=== PATIENT | female | born 1990 | race Hispanic/Latino ===

== ENCOUNTER 2016-06-10 14:08 | Inpatient (IN) | payer OTHER ==
[~2016-06-10] VITALS: Ht 149.9 cm; Wt 90.0 kg
[2016-06-10] VITALS (16 sets, daily range): BP systolic 109–130; BP diastolic 65–86
[2016-06-10 15:33] LABS: MEAN CORPUSCULAR HEMOGLOBIN 27.7 pg (27.0-33.0); MEAN CORPUSCULAR HGB CONC 34.1 g/dl (32.0-36.5); MEAN CORPUSCULAR VOLUME 81.1 fl (80.0-96.0); RED CELL DISTRIBUTION WIDTH 14.3 % (11.5-14.5); WHITE BLOOD COUNT 8.5 K/mm3 (4.0-10.0)
[2016-06-10] MEDS ORDERED: OXYTOCIN DRIP 30 UNITS in APPROPRIATE DILUENT 1 EA IV SCH (15:45)
[2016-06-10] MEDS ORDERED: LR 1,000 ML IV SCH (15:45)
[2016-06-10 15:50] LABS: ANION GAP 13 MEQ/L (8-16); BLOOD UREA NITROGEN 6 MG/DL (7-18); CALCIUM LEVEL 8.1 MG/DL (8.5-10.1); CARBON DIOXIDE LEVEL 22 MEQ/L (21-32); CHLORIDE LEVEL 105 MEQ/L (98-107); CREATININE FOR GFR 0.52 MG/DL (0.55-1.02); GLOMERULAR FILTRATION RATE > 60.0 (>60); GLUCOSE, FASTING 80 MG/DL (70-105); POTASSIUM SERUM 3.9 MEQ/L (3.5-5.1); SODIUM LEVEL 140 MEQ/L (136-145)
[2016-06-10 17:42] LABS: MEAN CORPUSCULAR HEMOGLOBIN 27.3 pg (27.0-33.0); MEAN CORPUSCULAR HGB CONC 33.5 g/dl (32.0-36.5); MEAN CORPUSCULAR VOLUME 81.6 fl (80.0-96.0); RED CELL DISTRIBUTION WIDTH 14.3 % (11.5-14.5); WHITE BLOOD COUNT 8.8 K/mm3 (4.0-10.0)
[2016-06-10 17:43] LABS: PLTBLUE- EDTA FREE MACHINE 57 K/mm3 (172-450)
[2016-06-10 17:59] LABS: PLTBLUE- EDTA FREE CALC 63 K/mm3 (172-450)
[2016-06-11] VITALS (8 sets, daily range): BP systolic 120–145; BP diastolic 73–91
[2016-06-11 02:04] LABS: CORD GAS ABE A -7.9; CORD GAS ABE V -2.2; CORD GAS HCO3 V 22.1 MEQ/L; CORD GAS O2 SAT A 52.3 %; CORD GAS O2 SAT V 72.6 %; CORD GAS PCO2 A 34.2 mmHg; CORD GAS PCO2 V 37.1 mmHg; CORD GAS PH A 7.315 UNITS; CORD GAS PH V 7.393 UNITS; CORD GAS PO2 A 22.5 mmHg; CORD GAS PO2 V 29.7 mmHg; CORD GAS SBC A 17.1 MEQ/L; CORD GAS SBC V 21.9 MEQ/L; CORD GAS TCO2 A 18.1 MEQ/L; CORD GAS TCO2 V 23.2 MEQ/L
[2016-06-11] MEDS ORDERED: OXYTOCIN DRIP 30 UNITS in APPROPRIATE DILUENT 1 EA IV SCH (03:44)
[2016-06-11] MEDS ORDERED: RHOGAM 300 MCG (1500 IU) INJ (J2790) IM SCH (03:45)
[2016-06-11] MEDS ORDERED: DIBUCAINE 1% OINTMENT 30GM TOP PRN (03:45)
[2016-06-11] MEDS ORDERED: METHYLERGONOVINE MALEATE 0.2 MG/ML VIAL (J2210) IM PRN (03:45)
[2016-06-11] MEDS ORDERED: PROMETHAZINE 25 MG TAB PO PRN (03:45)
[2016-06-11] MEDS ORDERED: IBUPROFEN 800 MG TAB PO PRN (03:45)
[2016-06-11] MEDS ORDERED: ACETAMINOPHEN 500 MG TAB PO PRN (03:45)
[2016-06-11] MEDS ORDERED: MEASLES,MUMPS,RUBELLA VACCINE INJ (MMR-II) (90707) SC SCH (03:45)
[2016-06-11] MEDS ORDERED: ONDANSETRON 4MG/2ML VIAL (J2405) IV PRN (03:45)
[2016-06-11 06:58] LABS: MEAN CORPUSCULAR HEMOGLOBIN 27.6 pg (27.0-33.0); MEAN CORPUSCULAR HGB CONC 33.3 g/dl (32.0-36.5); MEAN CORPUSCULAR VOLUME 83.1 fl (80.0-96.0); WHITE BLOOD COUNT 11.7 K/mm3 (4.0-10.0)
--- NOTE | 2016-06-11 07:06 | DN ---
DATE OF DELIVERY: 06/11/2016 TIME OF : 0127. GENDER: Female. : 7 and 9. WEIGHT: 3490 grams, 7 pounds, 11 ounces. LACERATIONS: First degree midline laceration. ESTIMATED BLOOD LOSS: 300 mL. ANESTHESIA: None. Cord gases: 7.31, 7.39 with base excess -7.9 and -2.2. COUNTS: Five laparotomy sponges, count of four prior to and after delivery. Four sharps removed from the delivery field. COMPLICATIONS: There was an approximately less than 30 second shoulder dystocia which was alleviated with Kin maneuver and suprapubic pressure. DELIVERY NOTE: On June 11, 2016, Mrs. Munoz, a 25-year-old 2, now para 2, had a spontaneous vaginal deliver of a live born female , 7 and 9, weight 3490 grams or 7 pounds 11 ounces. Head was delivered ADAM with gentle downward traction. I was unable to deliver the right anterior shoulder, at which time, the patient was repositioned to the Kin maneuver and suprapubic pressure was applied with alleviation of the right anterior shoulder followed by left posterior shoulder and corpus. was handed to mother with a good cry. Cord was clamped times two, it was cut by the father of the baby under my direction. Cord blood and cord gases were then obtained. Placenta was then drained and delivered grossly intact. A premixed bag of 500 mL of normal saline with 30 units of Pitocin was then bolused along with uterine massage. The uterus was firm. On inspection, there was a first degree midline laceration. The area was infused with 1% lidocaine and then wound was repaired with #3-0 Vicryl Rapide. On reinspection, the cervix, vagina, perineum was grossly intact, hemostatic. Mother and baby recovering in stable condition. The couple decided to name their daughter Keegan.
[2016-06-11] MEDS ORDERED: ACET50TA PO (08:25)
[2016-06-11] MEDS ORDERED: IBUP-1114 PO (08:26)
[2016-06-11] MEDS ORDERED: PRENTAB9 PO (08:26)
[2016-06-11] MEDS: PRENATAL VITAMIN TAB PO SCH (08:44)
[2016-06-11] MEDS: DOCUSATE SODIUM 100 MG CAP PO SCH ×2 (08:45→20:47)
[2016-06-12 05:30] VITALS: BP 131/79
[2016-06-12] MEDS: DOCUSATE SODIUM 100 MG CAP PO SCH (09:10)
[2016-06-12] MEDS: PRENATAL VITAMIN TAB PO SCH (09:10)
--- NOTE | 2016-06-12 10:01 | DSES ---
DATE OF ADMISSION: 06/10/2016 DATE OF DISCHARGE: 06/12/2016 This lady is a 25-year-old 2, para 1 admitted for induction of labor because of a category two strip and gestational diabetes mellitus 1 (GDMA1). She had induction of labor, delivered a live female infant weighing 7 pounds 11 ounces, 3490 grams, of 7 and 9 in one and five minutes respectively. Arterial pH was 7.31, base excess minus 7.9, venous pH 7.39, base excess -2.2. On discharge we discussed phlebitis, cystitis, mastitis, endometritis and cellulitis, exercise, pain management, perineal, breast and wound care. The patient is uncertain as a method of control at the present time will discuss this with the provider at the 6-week checkup. VITAL SIGNS: On discharge her blood pressure is 131/79, respirations 18, pulse 77, temperature 96.7. Her hemoglobin today, so 10.9, hematocrit 32.7, platelets are low at 64. Etiology about the low platelets are uncertain, on admission her platelets were 69. There is no evidence in history to suggest that she had idiopathic thrombocytopenia (ITP) or any other platelet dysfunction. HEENT/NECK: On the rest of the examination she is normocephalic, atraumatic. Neck: Full range of motion. Pupils equal and reactive to light. EXTREMITIES: Distal pulses symmetric. No evidence of deep venous thrombosis (DVT), pulmonary embolus (PE), superficial phlebitis. CHEST: Chest is clear bilaterally bases. No wheezes or rhonchi. ABDOMEN: No CVA tenderness. Breast-feeding is going well. Uterus is two below. Lochia is moderate. Perineum is intact. No rashes or lesions or pruritus. No arthralgia, myalgia. No complaints of cough, wheezes, shortness of breath or dyspnea on exertion. No chest pain. No bruising. No bleeding. NEUROLOGY EXAM: Neuro complete. No incontinence, urgency or frequency. No nausea, vomiting, diarrhea or constipation. No diabetic issues. No REPRODUCTIVE ENDOCRINOLOGIST issues. PAST MEDICAL HISTORY: No past significant medical history. SOCIAL HISTORY: She does not smoke or drink, does not abuse drugs. No domestic violence. SUMMARY: In summary have a term gestation delivered after induction of labor a live female for discharge today. Followup in the office in six weeks' time, possibly redoing her platelet count at that time to evaluate if further investigation is necessary.
[2016-06-12] MEDS ORDERED: NUPE1OIN2 TOP (11:15)
== END 2016-06-12 12:40 | disposition home or self-care (01) | DRG 775 ==
LOC: M LDI 14:08 → M OBS 06-11 03:55
PROVIDERS: ADMIT Obstetrics & Gynecology; ATTEND Obstetrics & Gynecology
PROC: 3E030VJ Introduction of Other Hormone into Peripheral Vein, Open Approach (ICD-10-PCS; 2016-06-10)
PROC: 10E0XZZ Delivery of Products of Conception, External Approach (ICD-10-PCS; principal; 2016-06-11)
PROC: 0HQ9XZZ Repair Perineum Skin, External Approach (ICD-10-PCS; 2016-06-11)
DX: O24.420 Gestational diabetes mellitus in childbirth, diet controlled (principal); O99.13 Other diseases of the blood and blood-forming organs and certain disorders involving the immune mechanism complicating the puerperium; O48.0 Post-term pregnancy; Z37.0 Single live birth; Z3A.40 40 weeks gestation of pregnancy; E66.9 Obesity, unspecified; Z88.5 Allergy status to narcotic agent; O70.0 First degree perineal laceration during delivery; O66.0 Obstructed labor due to shoulder dystocia; O99.214 Obesity complicating childbirth; D69.6 Thrombocytopenia, unspecified

== ENCOUNTER 2017-03-15 02:26 | Emergency (ER) | payer OTHER ==
[~2017-03-15] VITALS: Ht 149.9 cm; Wt 66.8 kg
[~2017-03-15 02:26] MED LIST: ACET50TA PO; IBUP-1114 PO; NUPE1OIN2 TOP; PRENTAB9 PO
[2017-03-15] MEDS ORDERED: FERR1TAB8 PO (02:41)
[2017-03-15] MEDS ORDERED: ZYRT10CA PO (02:41)
[2017-03-15] MEDS ORDERED: VITA500C24 PO (02:41)
[2017-03-15] MEDS ORDERED: COLA100C5 PO (02:41)
[2017-03-15] MEDS ORDERED: RANI150C PO (02:41)
[2017-03-15 02:56] LABS: BASO % 0.2 % (0.0-1.0); EOS # 0.1 10^3/uL (0.0-0.50); EOS % 1.7 % (0.0-3.0); IMMATURE GRANULOCYTE % 0.2 % (0-0); LYMPH # 2.4 10^3/uL (1.5-6.5); MEAN CORPUSCULAR HEMOGLOBIN 29.3 pg (27.0-33.0); MEAN CORPUSCULAR HGB CONC 33.3 g/dl (32.0-36.5); MONO # 0.3 10^3/uL (0.0-0.8); MONO % 4.1 % (0.0-5.0); NEUTROPHILS # 3.7 10^3/uL (1.8-7.7); NEUTROPHILS % 56.8 % (36.0-66.0); PLATELET COUNT, AUTOMATED 108 10^3/uL (150-450); RED CELL DISTRIBUTION WIDTH 12.8 % (11.5-14.5); WHITE BLOOD COUNT 6.6 10^3/uL (4.0-10.0)
[2017-03-15 03:27] LABS: ALBUMIN 3.2 GM/DL (3.2-5.2); ALBUMIN/GLOBULIN RATIO 0.91 (1.00-1.93); ALKALINE PHOSPHATASE 103 U/L (45-117); ALT/SGPT 26 U/L (12-78); ANION GAP 7 MEQ/L (8-16); AST/SGOT 33 U/L (15-37); BILIRUBIN,DIRECT < 0.1 MG/DL (0.0-0.2); BILIRUBIN,TOTAL 0.2 MG/DL (0.2-1.0); BLOOD UREA NITROGEN 13 MG/DL (7-18); CALCIUM LEVEL 8.2 MG/DL (8.5-10.1); CARBON DIOXIDE LEVEL 30 MEQ/L (21-32); CHLORIDE LEVEL 103 MEQ/L (98-107); GLOMERULAR FILTRATION RATE > 60.0 (>60); GLUCOSE, FASTING 133 MG/DL (70-105); POTASSIUM SERUM 3.3 MEQ/L (3.5-5.1); SODIUM LEVEL 140 MEQ/L (136-145); TOTAL PROTEIN 6.7 GM/DL (6.4-8.2)
[2017-03-15 04:47] LABS: CONTROL LINE HCG INT CTR LINE PRESENT
[2017-03-15] MEDS ORDERED: ISOVUE-370 76% 100ML VIAL (Q9967) As Ordered ONE (04:53)
--- NOTE | 2017-03-15 05:50 | REPUSA ---
CLINICAL HISTORY: Abdominal pain. TECHNIQUE: Realtime sonographic images were obtained in multiple projections. COMMENTS: The liver is of normal size, parenchyma demonstrates normal echogenicity. No discrete hepatic mass is seen. There is no intra or extrahepatic biliary ductal dilatation. CBD measures 3mm . The gallbladder is ph ysiologically distended with evidence of calculi. The gallbladder wall is not thickened and there is no pericholecystic fluid. There is no abdominal ascites. The right kidney measures 11.4 x 4.13 x 5.02 cm , free of hydronephrosis. IMPRESSION: Cholelithiasis. No evidence of acute cholecystitis. Thank you for your kind referral of this patient.
--- NOTE | 2017-03-15 06:00 | REPUSA ---
CLINICAL HISTORY: Abdominal pain. TECHNIQUE: Multiple axial, sagittal and coronal CT images were obtained through the abdomen and pelvi s after administration of intravenous contrast material. COMMENTS: The liver is mildly enlarged with decreased attenuation without mass or defect. There is no intra or extrahepatic biliary ductal dilatation. The spleen is normal. The gallbladder is within normal limits . The pancreas is of normal contour and attenuation characteristics. There is no evidence of adrenal mass. Both kidneys demonstrate prompt and equal nephrograms. The kidneys are normal in size, shape and conf iguration. There is no evidence of renal or ureteral mass. No renal or ureteral calculi are identifie d. There is no hydroureter or hydronephrosis. No evidence for appendicitis. There is no bowel wall thickening. No evidence for small or large rebekah l obstruction. There is no evidence of abdominal ascites or lymphadenopathy. There is no evidence of intrinsic or extrinsic bladder mass. There is no pelvic lymphadenopathy. Dif fuse thickening of the wall of the bladder. Unremarkable intrauterine device. Minimal free pelvic fluid. Images of the lung bases show no evidence of pleural or parenchymal mass. There are no pleural effusi ons. The bony structures are free of lytic or blastic lesions. Multilevel degenerative changes are seen in volving the thoracolumbar spine. Scattered calcifications are seen involving the aorta and major bran ches compatible with atherosclerosis. IMPRESSION: Mild hepatomegaly with fatty infiltration. Nondilated biliary tree. Moderate large bowel fecal stasis. Diffuse thickening of the wall of the bladder. This is suspicious for mild cystitis. Intrauterine device is unremarkable. Minimal free pelvic fluid. Thank you for your kind referral of this patient.
[2017-03-15 06:20] VITALS: BP 137/82
== END 2017-03-15 06:33 | disposition home or self-care (01) ==
LOC: EDUNIT# 02:26 → M ED 02:26 → EDBD 02:26 → EDSEX 02:26 → M ED 06:33
DX: K85.10 Biliary acute pancreatitis without necrosis or infection (principal); Z79.899 Other long term (current) drug therapy; Z88.5 Allergy status to narcotic agent
CPT/HCPCS: 74177; 76705; 80048; 80076; 83690; 84703; 85025; 99284; Q9967